=== PATIENT | male | born 1950 | race Caucasian/White ===

== ENCOUNTER 2020-08-01 05:58 | Observation (INO) | payer OTHER ==
[~2020-08-01] VITALS: Ht 182.9 cm; Wt 93.0 kg
[2020-08-01 06:31] VITALS: BP 155/72
[2020-08-01 17:07] VITALS: BP 144/71
[2020-08-01 17:20] VITALS: BP 157/77
[2020-08-01 22:51] VITALS: BP 118/65
[2020-08-02 06:12] VITALS: BP 119/64
[2020-08-02 08:29] VITALS: BP 145/67
[2020-08-02 10:19] VITALS: BP 145/67
== END 2020-08-02 11:26 | disposition home or self-care (01) ==
LOC: DS 05:58 → NM 09:00 → OR 11:30 → MU 15:28
PROVIDERS: ADMIT Surgery; ATTEND Surgery
DX: E21.0 Primary hyperparathyroidism (principal)
CPT/HCPCS: A9500; G0378; J0690; J3010; J3490; J7030; Q0092; Q9968; U0003-CS